=== PATIENT | male | born 1990 ===

== ENCOUNTER 2017-12-22 09:30 | Outpatient (CLI) | payer OTHER ==
[2017-12-22] MEDS ORDERED: GADOBUTROL 10 MMOL/10 ML VIAL ONE (09:57)
[2017-12-22] MEDS ORDERED: GADOBUTROL 10 MMOL/10 ML VIAL IVP ONE (10:14)
--- NOTE | 2017-12-22 14:22 | MRI Report ---
Reason: TESTICULAR HYPOFUNCTION Procedure Date: 12/22/2017 Accession Number: [id number] / [id number] Procedure: MRI - Brain W/WO CPT Code: FULL RESULT: EXAM: MRI BRAIN WITHOUT AND WITH CONTRAST EXAM DATE: 12/22/2017 10:56 AM. 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 COMPARISON: None. TECHNIQUE: Multiplanar, multisequence T1-weighted and fluid-sensitive MR sequences of the brain were performed. Sequences optimized for pituitary evaluation. Other: None. IV Contrast: 10 cc Gadavist. FINDINGS: Parenchyma: No evidence of acute infarct on diffusion weighted sequence. Parenchyma demonstrates normal signal intensity on T1- and T2-weighted sequences. 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 No evidence of prior hemorrhage on susceptibility weighted sequence. No abnormal enhancement. Pituitary: Symmetric and normal in size measuring approximately 4.5 mm craniocaudal with the stock insertion. Enhancement is homogeneous on dynamic sequence. Signal intensity is also homogeneous on T2 weighted sequence. The suprasellar cistern is clear. Adjacent cavernous sinuses are normal in appearance. Ventricles and Extra-axial Spaces: Ventricles are symmetric and normal in size for age. Extra-axial spaces are unremarkable. No abnormal enhancement. Orbits: Unremarkable. Sinuses: Paranasal sinuses and mastoid air cells are clear. Major Vascular Flow Voids: Intact. Dural Venous Sinuses and Major Central Veins: Patent on post-contrast images. IMPRESSION: 1. Unremarkable MRI of the brain and pituitary. [facility]
== END 2017-12-22 09:31 | disposition home or self-care (01) ==
LOC: DI 09:30
PROVIDERS: ATTEND Family Medicine
DX: E29.1 Testicular hypofunction (principal)
CPT/HCPCS: 70553; A9585

== ENCOUNTER 2018-08-13 12:05 | Outpatient (CLI) | payer OTHER ==
[2018-08-13] MEDS ORDERED: GADOPENTETATE DIMEGLUMINE 5 ML VIAL IVP ONE ×3 (12:26→13:39)
[2018-08-13] MEDS ORDERED: IOTHALAMATE MEGLUMINE 50 ML VIAL ONE (12:26)
[2018-08-13] MEDS ORDERED: BUFFERED LIDOCAINE 10 ML SYRINGE ONE (12:27)
[2018-08-13] MEDS ORDERED: BUPIVACAINE 0.5%-EPI 1:200000 PF 10 ML VIAL ONE (13:22)
[2018-08-13] MEDS ORDERED: BUFFERED LIDOCAINE 10 ML SYRINGE IU ONE (14:06)
[2018-08-13] MEDS ORDERED: IOTHALAMATE MEGLUMINE 50 ML VIAL IVP ONE ×2 (14:06)
--- NOTE | 2018-08-13 14:33 | XRAY Report ---
Reason: PAIN IN LEFT SHOULDER Procedure Date: 08/13/2018 Accession Number: [id number] / [id number] Procedure: FL - Arthrogram Needle Placement CPT Code: FULL RESULT: EXAM: LEFT SHOULDER ARTHROGRAPHIC INJECTION WITH FLUOROSCOPIC GUIDANCE EXAM DATE: 08/13/2018 01:31 PM. CLINICAL HISTORY: PAIN IN LEFT SHOULDER. History of rotator cuff repair left shoulder. COMPARISON: None. TECHNIQUE: The risks, benefits, and alternatives of the procedure were discussed with the patient. All questions were answered. Written and verbal consent were obtained. The left glenohumeral joint was marked under fluoroscopy and prepped and draped in a sterile manner. Local anesthesia was performed with 1% lidocaine. A 22-gauge needle was then inserted into the glenohumeral joint. 10 mL of a dilute gadolinium solution was then injected. The needle was removed without immediate complication. Other: None. Fluoroscopy Time: 58 seconds. Number of Images: 2. FINDINGS: Bones and joints: No fracture or subluxation. Injection: Fluoroscopic images demonstrate needle placement and contrast in the glenohumeral joint. No contrast extravasation outside of the glenohumeral joint. IMPRESSION: Successful fluoroscopically guided arthrographic injection of the left shoulder. [facility]
--- NOTE | 2018-08-15 14:20 | MRI Report ---
Reason: PAIN IN LEFT SHOULDER Procedure Date: 08/13/2018 Accession Number: [id number] / [id number] Procedure: MRI - Arthrogram Shoulder LT CPT Code: FULL RESULT: EXAM: LEFT SHOULDER MRI ARTHROGRAM WITH CONTRAST EXAM DATE: 08/13/2018 02:10 PM. CLINICAL HISTORY: Previous remote left shoulder injury. Left shoulder pain. Previous regular cuff and labral repair in 2011. COMPARISON: None. TECHNIQUE: Multiplanar, multisequence T1-weighted and fluid-sensitive sequences of the shoulder after an arthrographic injection of dilute gadolinium, dictated under a separate exam. Other: None. FINDINGS: Some of the images are to be limited due to patient-related motion artifact. Acromioclavicular Region: The acromion is type I. The acromioclavicular joint is unremarkable. The coracoacromial and coracoclavicular ligaments are intact. There is no contrast or fluid in the subacromial/subdeltoid bursa. Glenohumeral Region: No subluxation. No loose bodies. 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 The glenohumeral ligaments and joint capsule are unremarkable. Bone Marrow: There is cortical irregularity and slight cortical flattening at the superior and posterior superior aspects of the humeral head which may represent an old Hill-Sachs lesion. No acute fracture. 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 Biceps Tendon: The long head of the biceps tendon and biceps marlon are intact. Musculature/Rotator Cuff: There is an approximately 3 cm AP by 1.3 cm proximal to distal low-grade partial-thickness intrasubstance/articular surface tear at the distal end of the supraspinatus and infraspinatus tendons. Teres minor and subscapularis tendons are intact. No edema or fatty atrophy. Other: The subcutaneous tissues are unremarkable. IMPRESSION: 1. 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 2. 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 3. 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 4. Low-grade partial-thickness intrasubstance/articular surface tear at the distal end of the supraspinatus and infraspinatus tendons. No full-thickness rotator cuff tear. [facility]
== END 2018-08-13 12:06 | disposition home or self-care (01) ==
LOC: DI 12:05
PROVIDERS: ATTEND Family Medicine
DX: M94.212 Chondromalacia, left shoulder (principal); M75.102 Unspecified rotator cuff tear or rupture of left shoulder, not specified as traumatic; M75.82 Other shoulder lesions, left shoulder
CPT/HCPCS: 23350; 73222; 77002; Q9961